=== PATIENT | male | born 1970 | race Caucasian/White ===

== ENCOUNTER 2021-07-12 21:37 | Emergency (ER) | payer BC ==
[2021-07-12 22:43] LABS: HEMOGLOBIN 15.7 gm/dl (14.0-17.5); RED BLOOD COUNT 5.19 M/UL (4.20-5.50); WHITE BLOOD COUNT 7.3 K/UL (4.5-11.0)
[2021-07-12 23:08] LABS: BUN/CREATININE RATIO 24 (0-10)
== END 2021-07-13 00:35 | disposition expired ==
LOC: ER1 21:37
PROVIDERS: Physician Assistant Medical
DX: I46.9 Cardiac arrest, cause unspecified (principal); I49.01 Ventricular fibrillation; I47.2 Ventricular tachycardia; I10 Essential (primary) hypertension
CPT/HCPCS: 31500; 71045; 80053; 82550; 82553; 84484; 85025; 92950; 99285